=== PATIENT | male | born 1960 | race Two or more races ===

== ENCOUNTER 2018-07-19 07:29 | Day surgery (SDC) | payer BC ==
[~2018-07-19] VITALS: Ht 177.8 cm; Wt 74.8 kg
[2018-07-19] VITALS (8 sets, daily range): BP systolic 107–121; BP diastolic 64–75
[~2018-07-19 07:29] MED LIST: LR 1000ml 1,000 ML IVLG SCH; TAMSULOSIN HCL0.4 MG ORAL
[2018-07-19] MEDS ORDERED: PROPECIA1 MG PO (08:24)
--- NOTE | 2018-07-19 08:34 | Anethesia Preoperative Eval ---
Anesthesia Pre-op PMH/ROS General Date of Evaluation: Jul 19, 2018 Time of Evaluation: 09:15 Anesthesiologist: Chaz ASA Score: ASA 1 Mallampati Score Class I : Soft palate, uvula, fauces, pillars visible Class II: Soft palate, uvula, fauces visible Class III: Soft palate, base of uvula visible Class IV: Only hard plate visible Mallampati Classification: Class I Surgeon: Sandra Diagnosis: Screening Surgical Procedure: Colonoscopy Anesthesia History: none Family History: no anesthesia problems Allergies: Coded Allergies: CODEINE (Verified Adverse Reaction, Severe, Nausea/Vomiting , 07/18/18) Medications: see eMAR Patient NPO?: Yes NPO Date: Jul 18, 2018 NPO Time: 21:30 Past Medical History Cardiovascular: Denies: HTN, CAD, CT, valve dz, arrhythmia, other Pulmonary: Denies: asthma, COPD, SHANTEL, other Neurologic/Psychiatric: Denies: dementia, CVA, depression/anxiety, TIA, other Endocrine: Reports: DM - diet controlled pre-DM HEENT: Denies: cataract (L), cataract (R), glaucoma, POARCH (L), POARCH (R), other Hematology/Immune: Denies: anemia, DVT, bleeding disorder, other Musculoskeletal/Integumentary: Denies: OA, RA, DJD, DDD, edema, other PSxH Narrative: cystoscopy Anesthesia Pre-op Phys. Exam Physician Exam Last Vital Signs Date Time Temp Pulse Resp B/P (MAP) Pulse Ox O2 Delivery O2 Flow Rate FiO2 07/19/18 08:19 98.1 74 20 121/75 99 Room Air Constitutional: NAD Neurologic: CN 2-12 intact Cardiovascular: RRR Respiratory: CTA Gastrointestinal: S/NT/ND Airway Exam Mallampati Score: Class I MO: full ROM: full Teeth: intact Dentures: no upper, no lower Anesthesia Pre-op A/P Labs chart reviewed Risk Assessment & Plan Assessment: A&Ox4 Plan: MAC Status Change Before Surgery: No Pre-Antibiotics Given Within 1 Hr of Incision: Radha Cardoso CRNA Jul 19, 2018 08:34
--- NOTE | 2018-07-19 08:35 | Immediate Post-Op Evaluation ---
Immediate Post-Op Evalulation Immediate Post-Op Evalulation Procedure: Colonoscopy Date of Evaluation: Jul 19, 2018 Time of Evaluation: 10:03 IV Fluids: LR 500 ml Blood Products: 0 Estimated Blood Loss: 0 Urinary Output: 0 Blood Pressure Systolic: 108 Blood Pressure Diastolic: 69 Pulse Rate: 58 Respiratory Rate: 20 O2 Sat by Pulse Oximetry: 100 Temperature (Fahrenheit): 97.2 Pain Score (1-10): 0 Nausea: No Vomiting: No Complications none Patient Status: awake, reacts, patent Hydration Status: adequate Given Within 1 Hr of Incision: No - none per surgeon Radha Ware CRNA Jul 19, 2018 08:35
[2018-07-19] MEDS ORDERED: LR 1000ml ONE (09:00)
[2018-07-19] MEDS ORDERED: Propofol 200mg/20ml IV ONE (09:00)
[2018-07-19] MEDS ORDERED: Lidocaine 1% MPF 10mg/ml 5ml ONE (09:00)
[2018-07-19] MEDS ORDERED: Midazolam 2mg/2ml Inj ONE (09:05)
--- NOTE | 2018-07-19 09:20 | Short Stay Surgery H&P ---
History of Present Illness History of Present Illness Chief Complaint see attached H&P HPI Chong Alanis is a 57 year old male who was admitted on for Colon Screening Patient History Allergies: Coded Allergies: CODEINE (Verified Adverse Reaction, Severe, Nausea/Vomiting , 07/18/18) Medication History Scheduled Finasteride (Propecia), 1 MG PO DA, (Reported) Tamsulosin Hcl (Tamsulosin Hcl*), 0.4 MG ORAL BEDTIME, (Reported) Physical Exam Vital Signs Last Vital Signs Date Time Temp Pulse Resp B/P (MAP) Pulse Ox O2 Delivery O2 Flow Rate FiO2 07/19/18 08:19 98.1 74 20 121/75 99 Room Air Plan Attestation Are the patient's medical conditions optimized for surgery? Americo Flores MD Jul 19, 2018 09:20
--- NOTE | 2018-07-19 09:20 | Pre-Procedure Note/Attestation ---
Pre-Procedure Note/Attestation Complete Prior to Procedure Planned Procedure: not applicable Procedure Narrative: colonoscopy Indications for Procedure Pre-Operative Diagnosis: screening Attestation I attest that I discussed the nature of the procedure; its benefits; risks and complications; and alternatives (and the risks and benefits of such alternatives ), prior to the procedure, with the patient (or the patient's legal termite control service representative). I attest that, if there was a reasonable possibility of needing a blood transfusion, the patient (or the patient's legal termite control service representative) was given the [facility] standardized written summary, pursuant to the [place] Blood Safety Act ([place] Health and Safety Code # 1645, as amended). I attest that I re-evaluated the patient just prior to the surgery and that there has been no change in the patient's H&P, except as documented below: Americo Flores MD Jul 19, 2018 09:20
--- NOTE | 2018-07-19 09:56 | Endoscopy Procedure Note ---
Endoscopy Procedure Note General Indication for Procedure: screen Procedures Performed: colonoscopy Operative Findings/Diagnosis: dim TV polyp - bx, rare tics, M-M Rhoids Specimen: yes Pt Tolerated Procedure Well: Yes Estimated Blood Loss: none Anesthesia Anesthesiologist: see report Anesthesia: MAC Medications Medication Given: see anesthesia record Inserted Devices Implant(s) used?: No GI Core Measures 50 yrs or older w/o bx or poly: No 10yrs. F/U not recommended: No If not recommended, why?: Above average risk 10 yrs. F/U needed: No 18 years or older w/prev. colo: No <3yrs. since last colonoscopy: No Med reason:<3 yrs.: System Reason:<3 yrs.: Last colonoscopy >= to 3yrs: Yes Americo Flores MD Jul 19, 2018 09:56
--- NOTE | 2018-07-19 09:57 | Brief Operative Note ---
Immediate Post Operative Note Operative Note Chief Complaint: screen Pre-op Diagnosis: screening Procedure: colon , bx Post-op Diagnosis: TV dim polyp, rare tic, M-M Rhoid Surgeon: travon Anesthesiologist: see report Anesthesia: MAC Specimen: yes Complications: none Condition: stable Fluids: given Estimated Blood Loss: none Drains: none Implant(s) used?: No Americo Flores MD Jul 19, 2018 09:57
--- NOTE | 2018-07-19 10:12 | 48 Hour Post Anesthesia Eval ---
Post Anesthesia Evaluation Procedure: Colonoscopy Date of Evaluation: Jul 19, 2018 Time of Evaluation: 10:15 Blood Pressure Systolic: 110 0: 67 - 56 Pulse Rate: 56 Respiratory Rate: 18 Temperature (Fahrenheit): 97.5 O2 Sat by Pulse Oximetry: 100 Airway: patent Nausea: No Vomiting: No Pain Intensity: 0 Hydration Status: adequate Cardiopulmonary Status: WNL Mental Status/LOC: patient returned to baseline Post-Anesthesia Complications: none Follow-up care needed: patient intructions given Radha Ware CRNA Jul 19, 2018 10:12
--- NOTE | 2018-07-20 05:45 | Operative Note - Dictated ---
DATE OF OPERATION: 07/19/2018 GASTROENTEROLOGY PROCEDURE REPORT PROCEDURE: Colonoscopy with biopsy. SURGEON: Americo Flores M.D. ANESTHESIA: Please see the separate anesthesiologist's notes for details. PRE-ENDOSCOPIC DIAGNOSIS: Screening colonoscopy. POST-ENDOSCOPIC DIAGNOSES: 1. Normal terminal ileum to 5 cm. 2. Diminutive distal transverse colon polyp, status post biopsy removal. 3. left-sided diverticulosis. 4. Mild to moderate internal hemorrhoids. DESCRIPTION OF PROCEDURE: The procedure, its risks, indications, alternatives, and possible complications were explained to the patient and informed consent was obtained. The patient was then sedated in the left lateral decubitus position and a rectal exam was done, which was unremarkable. The colonoscope was introduced into the rectum and advanced to the terminal ileum for about 5 cm. The colonoscope was then gradually withdrawn and the mucosa examined carefully. Examination of the terminal ileal mucosa did not reveal any abnormalities. A diminutive polyp in the distal transverse colon was removed with biopsy forceps. Rare left-sided colonic diverticulosis was seen. Retroflexed view of the rectum revealed internal hemorrhoids. The colonoscope was removed and the patient was sent to recovery in good condition. COMPLICATIONS: None. RECOMMENDATIONS: 1. High-fiber diet. 2. Follow up biopsy results. 3. Outpatient followup. Thank you for asking me to participate in the care of this patient. Americo Flores M.D. DR: KENZIE JOB#: [id number] CC: YESENIA
== END 2018-07-19 12:25 | disposition home or self-care (01) ==
LOC: GAS 07:29
DX: Z12.11 Encounter for screening for malignant neoplasm of colon (principal); D12.3 Benign neoplasm of transverse colon; K57.90 Diverticulosis of intestine, part unspecified, without perforation or abscess without bleeding; K64.8 Other hemorrhoids; Z88.6 Allergy status to analgesic agent; E11.9 Type 2 diabetes mellitus without complications
CPT/HCPCS: 45380; 82962; J2250; J2704; 94003; 94150